=== PATIENT | female | born 1985 | race Caucasian/White ===

== ENCOUNTER 2021-01-09 12:51 | Emergency (ER) | payer OTHER ==
[~2021-01-09] VITALS: Ht 170.2 cm; Wt 65.3 kg
[2021-01-09] MEDS ORDERED: LORazepam 2 MG/ML, 1ML ONE ×2 (13:35→14:49)
[2021-01-09] MEDS: LORazepam 2 MG/ML, 1ML IVPush PRN ×3 (13:38→14:52)
[2021-01-09] MEDS ORDERED: ONDANSETRON 2MG/ML, 2ML ONE (13:41)
[2021-01-09] MEDS ORDERED: THIAMINE 100MG TABLET ONE (13:41)
--- NOTE | 2021-01-09 13:50 | NUR ---
hx long standing hx binge drinking arrived today post 24 hours last drink anxious with the shakes iv 20 started in the rac and meds given per orders pt cooperative friend at the bs
--- NOTE | 2021-01-09 13:58 | NUR ---
pt remains with the shakes unable to hold a cup to take tab second dose of ativan give 1 mg sat at 99% prior to secondose
[2021-01-09] MEDS ORDERED: SODIUM CHLORIDE FLUSH 10ML SYR IVF ONE (14:00)
[2021-01-09] MEDS ORDERED: SODIUM CHLORIDE 0.9% 1,000ML IVBOLUS ONE (14:00)
[2021-01-09] MEDS ORDERED: ONDANSETRON 2MG/ML, 2ML IVPush ONE (14:00)
[2021-01-09] MEDS ORDERED: THIAMINE 100MG TABLET PO ONE (14:00)
[2021-01-09 14:01] LABS: ALANINE AMINOTRANSFERASE 47 U/L (12-78); ALBUMIN 3.9 g/dL (3.4-5.0); ANION GAP 13 mmol/L (5-15); BASOPHILS % (AUTO) 1 % (0-1); CALCIUM 9.2 mg/dL (8.5-10.1); CHLORIDE 106 mmol/L (98-107); CREATININE 0.48 mg/dL (0.55-1.02); EOSINOPHILS % (AUTO) 0 % (1-7); LYMPHOCYTES % (AUTO) 37 % (22-44); MEAN CORPUSCULAR HEMOGLOBIN 31.7 pg (27.0-34.8); MEAN CORPUSCULAR HGB CONC 34.3 g/dL (32.4-35.8); MEAN PLATELET VOLUME 7.7 fL (7.4-10.4); MONOCYTES % (AUTO) 10 % (2-9); NEUTROPHILS % (AUTO) 52 % (42-75); PLATELET COUNT 151 x10^3/uL (130-400); RED BLOOD COUNT 4.55 x10^6/uL (3.82-5.3); RED CELL DISTRIBUTION WIDTH 15.2 % (9.6-15.2)
[2021-01-09 14:06] LABS: ALKALINE PHOSPHATASE 102 U/L (45-117); BILIRUBIN,TOTAL 1.3 mg/dL (0.2-1.0); TOTAL PROTEIN 7.6 g/dL (6.4-8.2)
--- NOTE | 2021-01-09 14:51 | NUR ---
CALLED [facility] FOR ASSISTANCE WITH INPATIENT REHAB.
--- NOTE | 2021-01-09 14:54 | NUR ---
Pt medicated as she is still shakey. Mild nausea. Denies WARD.
[2021-01-09] MEDS ORDERED: POTASSIUM CHLORIDE 20 MEQ TAB.ER.PRT PO ONE (15:00)
--- NOTE | 2021-01-09 15:33 | NUR ---
SW at bedside.
[2021-01-09] MEDS ORDERED: POTASSIUM CHLORIDE 20 MEQ TAB.ER.PRT ONE (16:34)
[2021-01-09 16:37] VITALS: BP 110/74
--- NOTE | 2021-01-09 16:42 | NUR ---
Pt requested Ativan rx on d/c. This RN inquired with MD Saravia and educated pt that he stated he does not prescribe benzodiazipines to pt's not in in-pt tx as there is risk for severe resp depression if the pt is at home and drinks alcohol. Pt communicated understanding. Per , pt and will go home and inquire with insurance which treatment options are covered.
== END 2021-01-09 16:47 | disposition home or self-care (01) ==
LOC: ED 14:54
DX: F10.139 Alcohol abuse with withdrawal, unspecified (principal); R45.4 Irritability and anger; R45.1 Restlessness and agitation; R11.2 Nausea with vomiting, unspecified; R10.9 Unspecified abdominal pain; Y90.0 Blood alcohol level of less than 20 mg/100 ml
CPT/HCPCS: 36415; 80053; 83690; 84703; 85025; 96361; 96374; 96375; 96376; 99284; J2060; J2405; J7030